=== PATIENT | male | born 1995 ===

== ENCOUNTER 2022-06-29 23:45 | Emergency (ER) | payer SELFPAY ==
[2022-06-30] MEDS ORDERED: ASPIRIN 81 MG CHEWABLE TABLET ONE (01:02)
[2022-06-30 01:21] LABS: Protime INR 1.03
[2022-06-30 01:23] LABS: Absolute Lymphocytes (CBC) 3.3 K/uL (0.7-4.9); Hematocrit 39.6 % (39.6-49.0); Lymphocytes % 32.7 % (15.3-44.8); MCV 84.3 fL (80-100); MPV 7.8 fL (7.6-11.3)
[2022-06-30 01:45] LABS: ALT/SGPT 75 U/L (16-61); AST/SGOT 41 U/L (15-37); Albumin 3.2 g/dL (3.4-5.0); Alkaline Phosphatase 58 U/L (45-117); BUN Blood Urea Nitrogen 11 mg/dL (7-18); Bicarbonate 29 mEq/L (21-32); Bilirubin Total 0.2 mg/dL (0.2-1.0); Glomerular Filtration Rate 122 ml/min (=/>90); Glucose Level 126 mg/dL (74-106); Magnesium 2.1 mg/dL (1.6-2.4); NT PRO-BNP 65 pg/mL (<125); Potassium 3.8 mEq/L (3.5-5.1); Protein, Total 7.8 g/dL (6.4-8.2); Sodium Level 137 mEq/L (136-145); Troponin High Sensitivity 6.1 pg/mL (<58.9)
[2022-06-30 01:51] LABS: Bilirubin Direct < 0.1 mg/dL (0-0.2); Bilirubin Indirect, Calculated ND mg/dL (0.2-0.8)
--- NOTE | 2022-06-30 03:54 | EDPHYS ---
Physician Documentation [facility] Name: Kendrick Caicedo Age: 26 yrs Sex: Male : 1995 Arrival Date: 06/29/2022 Time: 23:45 Bed 4 Private MD: ED Physician Mack Morales HPI: 06/30 01:55 This 26 yrs old Male presents to ER via Ambulatory with complaints of Flank Pain, Cough.snw 01:55 The patient or guardian reports airway noise, cough, hoarse voice. Onset: The snw symptoms/episode began/occurred acutely, 1 week(s) ago, and became persistent. Associated signs and symptoms: Pertinent positives: hoarse voice and cough. Severity of symptoms: At their worst the symptoms were moderate. It is unknown whether or not the patient has had similar symptoms in the past. The patient has not recently seen a physician. Historical: - Allergies: 00:21 No Known Allergies; kd3 - Immunization history:: Adult Immunizations up to date. - Social history:: Smoking status: Patient denies any tobacco usage or history of. ROS: 01:52 Eyes: Negative for injury, pain, redness, and discharge. snw 01:52 Neck: Negative for injury, pain, and swelling, Cardiovascular: Negative for chest pain, palpitations, and edema. 01:52 Abdomen/GI: Negative for abdominal pain, nausea, vomiting, diarrhea, and constipation, pt states he feels swollen at right upper quad Back: Negative for injury and pain, : Negative for injury, bleeding, discharge, and swelling, MS/Extremity: Negative for injury and deformity, Skin: Negative for injury, rash, and discoloration, Neuro: Negative for headache, weakness, numbness, tingling, and seizure, Psych: Negative for depression, anxiety, suicide ideation, homicidal ideation, and hallucinations. 01:52 Constitutional: Positive for malaise, hoarseness, shortness of breath. 01:52 ENT: Positive for hoarseness. 01:52 Respiratory: Positive for shortness of breath, on exertion. Exam: 00:45 Head/Face: Normocephalic, atraumatic. Eyes: Pupils equal round and reactive to light, snw extra-ocular motions intact. Lids and lashes normal. Conjunctiva and sclera are non-icteric and not injected. Cornea within normal limits. Periorbital areas with no swelling, redness, or edema. ENT: Nares patent. No nasal discharge, no septal abnormalities noted. Tympanic membranes are normal and external auditory canals are clear. Oropharynx with no redness, swelling, or masses, exudates, or evidence of obstruction, uvula midline. Mucous membranes moist. Neck: Trachea midline, no thyromegaly or masses palpated, and no cervical lymphadenopathy. Supple, full range of motion without nuchal rigidity, or vertebral point tenderness. No Meningismus. Chest/axilla: Normal chest wall appearance and motion. Nontender with no deformity. No lesions are appreciated. Cardiovascular: Regular rate and rhythm with a normal S1 and S2. No gallops, murmurs, or rubs. Normal PMI, no JVD. No pulse deficits. 00:45 Abdomen/GI: Soft, non-tender, with normal bowel sounds. No distension or tympany. No guarding or rebound. No evidence of tenderness throughout. Back: No spinal tenderness. No costovertebral tenderness. Full range of motion. Skin: Warm, dry with normal turgor. Normal color with no rashes, no lesions, and no evidence of cellulitis. MS/ Extremity: Pulses equal, no cyanosis. Neurovascular intact. Full, normal range of motion. Neuro: Awake and alert, GCS 15, oriented to person, place, time, and situation. Cranial nerves II-XII grossly intact. Motor strength 5/5 in all extremities. Sensory grossly intact. Cerebellar exam normal. Normal gait. Psych: Awake, alert, with orientation to person, place and time. Behavior, mood, and affect are within normal limits. 00:45 Constitutional: The patient appears alert, awake, obese. 00:45 Respiratory: the patient does not display signs of respiratory distress, Respirations: normal, Breath sounds: bronchial sounds, laryngitis sound to voice. Vital Signs: 00:18 BP 123 / 81; Pulse 92; Resp 22; Temp 98.2(O); Pulse Ox 98% on R/A; Weight 158.76 kg; kd3 Height 5 ft. 6 in. ; 01:30 BP 131 / 81; Pulse 90; Resp 16; Pulse Ox 95% on R/A; jb4 03:14 BP 128 / 64; Pulse 96; Resp 16; Pulse Ox 94% on R/A; jb4 00:18 Body Mass Index 56.49 (158.76 kg, 167.64 cm) kd3 MDM: 00:02 Patient medically screened. bs3 01:55 Differential diagnosis: bronchitis, flu, URI, CHF. Data reviewed: vital signs, nurses snw notes. 02:11 Transition of care: After a detail discussion of the patient's case, care is snw transferred to Mack Morales MD. 02:12 ED course: awaiting flu result and CT PE result. snw 03:52 ED course: Work-up nondiagnostic patient feeling well on reassessment I discussed that bs3 his weight may be contributing to things he likely has another viral illness his CTA was negative but did show incidental fatty liver which we discussed advised to follow-up with primary care strict return precautions given. 06/30 00:16 Order name: Basic Metabolic Panel; Complete Time: 01:54 snw 06/30 00:16 Order name: CBC with Diff; Complete Time: 01:31 snw 06/30 00:16 Order name: LFT's; Complete Time: :54 snw 06/30 00:16 Order name: Magnesium; Complete Time: 01:54 snw 06/30 00:16 Order name: NT PRO-BNP; Complete Time: :54 snw 06/30 00:16 Order name: PT-INR; Complete Time: 01:22 snw 06/30 00:16 Order name: Troponin HS; Complete Time: 01:54 snw 06/30 00:45 Order name: Flu; Complete Time: 03:29 jb4 06/30 00:16 Order name: CT Chest For PE Angio snw 06/30 01:16 Order name: Chest Single View EDMS 06/30 00:16 Order name: EKG; Complete Time: 00:17 snw 06/30 00:16 Order name: Cardiac monitoring; Complete Time: 00:45 snw 06/30 00:16 Order name: EKG - Nurse/Tech; Complete Time: 00:45 snw 06/30 00:16 Order name: IV Saline Lock; Complete Time: 01:02 snw 06/30 00:16 Order name: Labs collected and sent; Complete Time: 01:02 snw 06/30 00:16 Order name: O2 Per Protocol; Complete Time: 00:45 snw 06/30 00:16 Order name: O2 Sat Monitoring; Complete Time: 00:45 snw EC:40 Rate is 96 beats/min. Rhythm is regular. QRS Dawn is Normal. OH interval is normal. QRS snw interval is normal. QT interval is normal. Clinical impression: Normal ECG. Administered Medications: 01:04 Drug: Aspirin PO Chewable Tablet 324 mg Route: PO; jb4 Disposition: 03:52 I reviewed the patient's care provided by Advanced Practice Provider \T\ agree w/ the bs3 diagnosis \T\ care plan. I personally saw the pt \T\ performed a substantive portion of the visit, incldng all aspects of the (History/Exam/Medical Decision Making). Disposition Summary: 06/30/22 03:53 Discharge Ordered Location: Home bs3 Problem: new bs3 Symptoms: have improved bs3 Condition: Stable bs3 Diagnosis - Acute upper respiratory infection, unspecified bs3 Followup: bs3 - With: Private Physician - When: 48 Hours - Reason: Re-evaluation by your physician Discharge Instructions: - Discharge Summary Sheet bs3 - Upper Respiratory Infection, Adult bs3 Forms: - Medication Reconciliation Form bs3 - Thank You Letter bs3 - Antibiotic Education bs3 - Prescription Opioid Use bs3 Signatures: Dispatcher [employer] EDND Janeth Sandoval, DANIA-C VEGETABLE LOADER-Csnw Olman Obrien, RN RN jb4 Sanna Ro RN RN kd3 Mack Morales MD MD bs3 Corrections: (The following items were deleted from the chart) 01:14 00:17 Chest Single View+[email or web address].[email or web address] ordered. EDND EDMS 53 01:51 Constitutional: Positive for body aches, chills, fatigue, fever, malaise, poor PO snw intake, snw 01:51 Eyes: Negative for injury, pain, redness, and discharge, snw snw 01:51 ENT: Positive for sore throat, snw snw 01:51 Neck: Negative for injury, pain, and swelling, Cardiovascular: Negative for chest snw pain, palpitations, and edema, snw 53 01:51 Respiratory: Positive for cough, with rust-colored sputum, snw snw 01:51 Abdomen/GI: Negative for abdominal pain, nausea, vomiting, diarrhea, and snw constipation, Back: Negative for injury and pain, : Negative for injury, bleeding, discharge, and swelling, MS/Extremity: Negative for injury and deformity, Skin: Negative for injury, rash, and discoloration, Neuro: Negative for headache, weakness, numbness, tingling, and seizure, Psych: Negative for depression, anxiety, suicide ideation, homicidal ideation, and hallucinations, snw 01:53 01:51 Constitutional: Positive for snw snw 01:54 01:52 Abdomen/GI: Negative for abdominal pain, nausea, vomiting, diarrhea, and snw constipation, Back: Negative for injury and pain, : Negative for injury, bleeding, discharge, and swelling, MS/Extremity: Negative for injury and deformity, Skin: Negative for injury, rash, and discoloration, Neuro: Negative for headache, weakness, numbness, tingling, and seizure, Psych: Negative for depression, anxiety, suicide ideation, homicidal ideation, and hallucinations, snw
--- NOTE | 2022-06-30 03:54 | ER ---
Nurse's Notes [facility] Name: Kendrick Caicedo Age: 26 yrs Sex: Male : 1995 Arrival Date: 06/29/2022 Time: 23:45 Bed 4 Private MD: Diagnosis: Acute upper respiratory infection, unspecified Presentation: 06/30 00:18 Chief complaint: Patient states: I have been having some shortness of breath that kd3 started on Saturday and my voice started to get hoarse. I feel like i loose my breath when i talk. I am also having some swelling in my legs and i feel swollen around my liver. Coronavirus screen: Vaccine status: Patient reports receiving the 2nd dose of the covid vaccine. Ebola Screen: No symptoms or risks identified at this time. Initial Sepsis Screen: Does the patient meet any 2 criteria? No. Patient's initial sepsis screen is negative. Does the patient have a suspected source of infection? No. Patient's initial sepsis screen is negative. Risk Assessment: Do you want to hurt yourself or someone else? Patient reports no desire to harm self or others. Onset of symptoms was June 30, 2022. 00:18 Method Of Arrival: Ambulatory kd3 00:18 Acuity: STUART 3 kd3 Triage Assessment: 00:21 General: Appears uncomfortable, Behavior is calm, cooperative. Pain: Denies pain. kd3 Historical: - Allergies: 00:21 No Known Allergies; kd3 - Immunization history:: Adult Immunizations up to date. - Social history:: Smoking status: Patient denies any tobacco usage or history of. Screenin:00 [facility] ED Fall Risk Assessment (Adult) History of falling in the last 3 months, jb4 including since admission No falls in past 3 months (0 pts) Confusion or Disorientation No (0 pts) Score/Fall Risk Level 0 - 2 = Low Risk Oriented to surroundings, Maintained a safe environment. Abuse screen: Denies threats or abuse. Nutritional screening: No deficits noted. Tuberculosis screening: No symptoms or risk factors identified. Assessment: 00:45 General: Appears in no apparent distress. uncomfortable, Behavior is calm, cooperative, jb4 appropriate for age. Pain: Complains of pain in chest and right upper quadrant Pain does not radiate. Pain currently is 6 out of 10 on a pain scale. Quality of pain is described as pressure, stabbing. Neuro: Level of Consciousness is awake, alert, obeys commands, Oriented to person, place, time, situation. Cardiovascular: Patient's skin is warm and dry. Respiratory: Airway is patent Respiratory effort is even, unlabored, Respiratory pattern is regular, symmetrical. GI: Abdomen is non-distended, obese, Reports upper abdominal pain. : No signs and/or symptoms were reported regarding the genitourinary system. EENT: No signs and/or symptoms were reported regarding the EENT system. Derm: Skin is intact, Skin is pink, warm \T\ dry. Musculoskeletal: Circulation, motion, and sensation intact. Range of motion: intact in all extremities. 02:00 Reassessment: Patient appears in no apparent distress at this time. Patient and/or jb4 family updated on plan of care and expected duration. Pain level reassessed. Patient is alert, oriented x 3, equal unlabored respirations, skin warm/dry/pink. 03:11 Reassessment: Patient appears in no apparent distress at this time. Patient and/or jb4 family updated on plan of care and expected duration. Pain level reassessed. Patient is alert, oriented x 3, equal unlabored respirations, skin warm/dry/pink. 04:00 Reassessment: Patient appears in no apparent distress at this time. Patient and/or jb4 family updated on plan of care and expected duration. Pain level reassessed. Patient is alert, oriented x 3, equal unlabored respirations, skin warm/dry/pink. Vital Signs: 00:18 BP 123 / 81; Pulse 92; Resp 22; Temp 98.2(O); Pulse Ox 98% on R/A; Weight 158.76 kg; kd3 Height 5 ft. 6 in. ; 01:30 BP 131 / 81; Pulse 90; Resp 16; Pulse Ox 95% on R/A; jb4 03:14 BP 128 / 64; Pulse 96; Resp 16; Pulse Ox 94% on R/A; jb4 00:18 Body Mass Index 56.49 (158.76 kg, 167.64 cm) 3 ED Course: 06/29 23:51 Patient arrived in ED. ag3 06/30 00:06 [facility] snw 00:06 Mack Morales MD is Attending Physician. snw 00:21 Triage completed. kd3 00:21 Arm band placed on right wrist. kd3 00:25 Olman Obrien, RN is Primary Nurse. jb4 00:45 Initial lab(s) drawn, by me, sent to lab. Inserted saline lock: 18 gauge in right jb4 antecubital area, using aseptic technique. Blood collected. 01:16 Chest Single View In Process Unspecified. EDMS 02:20 CT Chest For PE Angio In Process Unspecified. EDMS 04:00 Patient has correct armband on for positive identification. Bed in low position. Call jb4 light in reach. Side rails up X 1. 04:00 No provider procedures requiring assistance completed. IV discontinued, intact, jb4 bleeding controlled, No redness/swelling at site. Pressure dressing applied. Administered Medications: 01:04 Drug: Aspirin PO Chewable Tablet 324 mg Route: PO; jb4 Medication: 04:00 VIS not applicable for this client. jb4 Outcome: 03:53 Discharge ordered by . bs3 04:00 Discharged to home ambulatory. jb4 04:00 Condition: stable 04:00 Discharge instructions given to patient, Instructed on discharge instructions, follow up and referral plans. Demonstrated understanding of instructions, follow-up care. 04:00 Patient left the ED. jb4 Signatures: Dispatcher [employer] Janeth Doan, NANNY/HOUSEHOLD MANAGER-C NANNY/HOUSEHOLD MANAGER-Csnw Olman Obrien, VANNA RN jb4 Mecca Tanner Kyli, RN RN kd3 Mack Morales MD MD bs3
[2022-06-30 04:13] VITALS: TEMP 98.2
[2022-06-30 04:17] VITALS: BP 128/64; O2SAT 94
--- NOTE | 2022-06-30 22:05 | RAD REPORT ---
EXAM DESCRIPTION: CT - Chest For Pe Angio - 06/30/2022 6:01 am CLINICAL HISTORY: The patient is 26 years old and is Male; DYSPNEA TECHNIQUE: Axial computed tomographic angiography images of the chest with intravenous contrast. S agittal and coronal reformatted images were created and reviewed. This CT exam was performed using one or more of the following dose reduction techniques: automated exposure control, adjustment of t he mA and/or kV according to patient size, and/or use of iterative reconstruction technique. MIP re constructed images were created and reviewed. COMPARISON: No relevant prior studies available. FINDINGS: Limitations: Suboptimal contrast bolus for detection of pulmonary embolism. Pulmonary arteries: No evidence of pulmonary embolism with the limitations above. Aorta: No acute findings. No thoracic aortic aneurysm. Lungs: Unremarkable. No mass. No consolidation. Pleural space: Unremarkable. No significant effusion. No pneumothorax. Heart: Unremarkable. No cardiomegaly. No significant pericardial effusion. No evidence of R V dysfunction. Bones/joints: No acute fracture. No dislocation. Soft tissues: Gynecomastia. Lymph nodes: Unremarkable. No enlarged lymph nodes. Liver: Hepatomegaly with diffuse hepatic steatosis. IMPRESSION: No acute finding in the chest. No evidence of pulmonary embolism. Electronically signed by: Eron Sykes MD 06/30/2022 3:01 AM CDT Due to temporary technical issues with the PACS/Fluency reporting system, reports are being signed by the in house radiologists without review as a courtesy to insure prompt reporting. The interpreting radiologist is fully responsible for the content of the report.
--- NOTE | 2022-06-30 22:07 | RAD REPORT ---
EXAM DESCRIPTION: RADChest Single View06/30/2022 1:15 am RAD - Chest Single View - 06/30/2022 1:15 am CLINICAL HISTORY: Chest pain COMPARISON: none FINDINGS: The lungs appear clear of acute infiltrate. The heart is normal size IMPRESSION: No acute abnormalities displayed
--- NOTE | 2022-07-02 15:26 | EKG ---
Test Date: 2022-06-30 Test Time: 00:33:54 Dining Manager: CELIA MEASUREMENT RESULTS: Intervals: Rate: 96 CO: 132 QRSD: 90 QT: 362 QTc: 457 [place]: P: 49 CO: 132 QRS: 86 T: 32 INTERPRETIVE STATEMENTS: Normal sinus rhythm Normal ECG No previous ECG available for comparison Electronically Signed On 07-02-22 15:22:16 CDT by uHmza Lopez
== END 2022-06-30 04:00 | disposition home or self-care (01) ==
LOC: ER 23:45
DX: J06.9 Acute upper respiratory infection, unspecified (principal)
CPT/HCPCS: 36415; 71045; 71275; 80048; 80076; 83735; 83880; 84484; 85025; 85610; 87804; 93005; Q9967